=== PATIENT | male | born 1980 | race Caucasian/White ===

== ENCOUNTER 2017-04-20 20:05 | Emergency (ER) | payer BC ==
[2017-04-20] MEDS ORDERED: Alum Hydrox/Mag Hydrox/Simeth 30 ML, Lidocaine 2% 15 ML PO STA ×2 (21:16)
--- NOTE | 2017-04-20 21:45 | EDM.PDOC ---
ED HPI GENERAL MEDICAL PROBLEM - General Chief Complaint: Chest Pain Stated Complaint: PAIN IN SHOULDERS AND CHEST Time Seen by Provider: 04/20/17 20:49 Source of Information: Reports: Patient, Family (), RN Notes Reviewed History Limitations: Reports: No Limitations - History of Present Illness INITIAL COMMENTS - FREE TEXT/NARRATIVE: The patient states that he developed sudden-onset bilateral shoulder achiness and epigastric tightness around 17:00 this evening. It is a pain, not her discomfort. It is made worse with inhalation, especially deep inhalation. The pain does not radiate. The patient denies any associated symptoms, including dyspnea, nausea, diaphoresis, or sense of impending doom. No prior similar symptoms. The patient states that he did not attempt any home remedies or treatments. The patient does not have a PCP. Middle Chest Pain Score (Numeric/FACES): 2 - Related Data Allergies Allergy/AdvReac Type Severity Reaction Status Date / Time No Known Allergies Allergy Verified 04/20/17 20:21 Home Meds: Home Meds . [No Known Home Meds] 04/20/17 [History] Past Medical History Musculoskeletal History: Reports: Fracture - Infectious Disease History Infectious Disease History: Reports: Chicken Pox, Measles - Past Surgical History HEENT Surgical History: Reports: Oral Surgery ([place] tooth (one) extraction) Social & Family History - Tobacco Use Smoking Status *Q: Never Smoker - Caffeine Use Caffeine Use: Reports: Soda - Alcohol Use Alcohol Use History: Yes Alcohol Use Frequency: Rarely - Recreational Drug Use Recreational Drug Use: No - Living Situation & Occupation Living situation: Reports: , with Spouse, with Family (1 child) Occupation: Employed ([employer]) ED ROS GENERAL - Review of Systems Review Of Systems: See Below Constitutional: Reports: No Symptoms HEENT: Reports: Other (Scratchy throat) Respiratory: Reports: No Symptoms Cardiovascular: Reports: No Symptoms Endocrine: Reports: No Symptoms GI/Abdominal: Reports: No Symptoms : Reports: No Symptoms Musculoskeletal: Reports: No Symptoms Skin: Reports: No Symptoms Neurological: Reports: No Symptoms Psychiatric: Reports: No Symptoms Hematologic/Lymphatic: Reports: No Symptoms Immunologic: Reports: No Symptoms ED EXAM, GENERAL - Physical Exam Exam: See Below Exam Limited By: No Limitations General Appearance: Alert, WD/WN, No Apparent Distress Eye Exam: Bilateral Eye: Normal Inspection Ears: Normal External Exam, Hearing Grossly Normal Nose: Normal Inspection, No Blood Throat/Mouth: Normal Inspection, Normal Lips, Normal Voice, No Airway Compromise Head: Atraumatic, Normocephalic Neck: Normal Inspection, Full Range of Motion Respiratory/Chest: No Respiratory Distress, Lungs Clear, Normal Breath Sounds, No Accessory Muscle Use Cardiovascular: Normal Peripheral Pulses, Regular Rate, Rhythm, No Gallop, No JVD, No Murmur, No Rub Peripheral Pulses: 4+: Radial (L), Radial (R) GI/Abdominal: Normal Bowel Sounds, Soft, Non-Tender, No Organomegaly, No Distention, No Abnormal Bruit, No Mass (Male) Exam: Deferred Back Exam: Normal Inspection, Full Range of Motion, NT Extremities: Normal Inspection, Normal Range of Motion, No Pedal Edema, Normal Capillary Refill Neurological: Alert, Oriented, Normal Cognition, No Motor/Sensory Deficits Psychiatric: Normal Affect Skin Exam: Warm, Dry, Intact, Normal Color, No Rash EKG INTERPRETATION EKG Date: 04/20/17 Time: 20:15 Rhythm: NSR Rate (Beats/Min): [address] [place]: Normal P-Wave: Present QRS: Wide (Nonspecific intraventricular conduction delay) ST-T: Normal QT: Normal Comparison: NA - No Prior EKG Course - Vital Signs Last Recorded V/S: Last Vital Signs Temp 36.3 C 04/20/17 20:17 Pulse 75 04/20/17 20:17 Resp 15 04/20/17 20:17 BP 141/100 H 04/20/17 20:17 Pulse Ox 100 04/20/17 20:17 - Orders/Labs/Meds Orders: Active Orders 24 hr Category Date Time Status EKG Documentation Completion [RC] STAT Care 04/20/17 21:05 Active Chest 2V [CR] Stat Exams 04/20/17 21:14 Taken Labs: Laboratory Tests 04/20/17 04/20/17 Range/Units 21:35 21:35 WBC 11.80 H (4.23-9.07) K/mm3 RBC 4.84 (4.63-6.08) M/mm3 Hgb 13.9 (13.7-17.5) gm/L Hct 40.1 (40.1-51.0) % MCV 82.9 (79.0-92.2) fl MCH 28.7 (25.7-32.2) pg MCHC 34.7 (32.2-35.5) g/dl RDW Std Deviation 38.7 (35.1-43.9) fL Plt Count 309 (163-337) K/mm3 MPV 9.0 L (9.4-12.3) fl Neutrophils % (Manual) 57 (40-60) % Band Neutrophils % 0 (0-10) % Lymphocytes % (Manual) 35 (20-40) % Atypical Lymphs % 0 % Monocytes % (Manual) 8 (2-10) % Eosinophils % (Manual) 0 L (0.8-7.0) % Basophils % (Manual) 0 L (0.2-1.2) Platelet Estimate Adequate Plt Morphology Comment Normal RBC Morph Comment Normal Sodium 140 (136-145) mEq/L Potassium 3.5 (3.5-5.1) mEq/L Chloride 105 (98-107) mEq/L Carbon Dioxide 28 (21-32) mEq/L Anion Gap 10.5 (5-15) BUN 18 (7-18) mg/dL Creatinine 1.1 (0.7-1.3) mg/dL Est Cr Clr Drug Dosing TNP Estimated GFR (MDRD) > 60 (>60) mL/min BUN/Creatinine Ratio 16.4 (14-18) Glucose 104 (74-106) mg/dL Calcium 9.2 (8.5-10.1) mg/dL Total Bilirubin 0.4 (0.2-1.0) mg/dL AST 18 (15-37) U/L ALT 36 (16-63) U/L Alkaline Phosphatase 26 L (46-116) U/L Troponin I < 0.017 (0.00-0.056) ng/mL Total Protein 7.5 (6.4-8.2) g/dl Albumin 3.9 (3.4-5.0) g/dl Globulin 3.6 gm/dL Albumin/Globulin Ratio 1.1 (1-2) Lipase 179 (73-393) U/L Meds: Medications Discontinued Medications Generic Name Dose Route Start Last Admin Trade Name Freq PRN Reason Stop Dose Admin Al Hydroxide/Mg Hydroxide 30 ml 04/20/17 23:03 04/20/17 23:09 Mag-Al Plus PO 04/20/17 23:04 30 ml ONETIME ONE Administration Al Hydroxide/Mg Hydroxide 30 0 ml 04/20/17 21:16 04/20/17 21:22 ml/ Lidocaine HCl 15 ml PO 04/20/17 21:17 45 ml ONETIME STA Administration Famotidine 40 mg 04/20/17 23:03 04/20/17 23:09 Pepcid PO 04/20/17 23:04 40 mg ONETIME STA Administration - Re-Assessments/Exams Free Text/Narrative Re-Assessment/Exam: 04/20/17 21:56 Two-view chest radiograph appears to be grossly normal. Cardiac silhouette is within normal limits. No pulmonary vascular congestion. No pleural effusions. No focal infiltrate. No pneumothorax. Formal read per the Radiologist pending. 04/20/17 22:25 The patient reports that the GI cocktail did help with his pain, although it has since returned. 04/20/17 23:04 Test results discussed with the patient and his . Wil's workup is entirely unremarkable. Improvement of the patient's symptoms following a GI cocktail strongly suggests that the patient is suffering from acid reflux. For tonight's purposes, I am ordering 40 mg oral Pepcid and oral Maalox, however, if his symptoms returned more, I am recommending that he start taking over-the- counter Pepcid once or twice a day. If that does not improve his symptoms, I am recommending that he follow-up with Dr. Coughlin to arrange for an EGD. Departure - Departure Time of Disposition: 23:05 Disposition: Home, Self-Care 01 Condition: Good Clinical Impression: GERD (gastroesophageal reflux disease) - Discharge Information Instructions: Food Choices for Gastroesophageal Reflux Disease, Adult Referrals: PCP,Caitlin [Primary Care Provider] - Dorita Coughlin [Physician] - Forms: ED Department Discharge Additional Instructions: You were seen in the emergency room for sudden-onset shoulder and upper abdominal/chest pain. Workup in the ER included blood work, a chest x-ray, and an ECG. Your entire workup was normal. You have not suffered a heart attack. You do not have a collapsed lung. You do not have pancreatitis. Your symptoms briefly improved following a GI cocktail, strongly suggesting that your symptoms are due to acid reflux. You were been treated with Pepcid and Maalox in the ER, however, if your symptoms continue, we recommend that you purchase an [id number] H2 queta , such as Pepcid, Zantac, or Tagamet. Generics are just as good as the brand name. You would take one tablet once or twice a day, as needed. If your symptoms persist despite taking an H2 queta up to twice a day, follow- up with Dr. Coughlin for further evaluation. If any other problems, please do not hesitate to return to the ER. - My Orders Last 24 Hours: My Active Orders 04/20/17 21:05 EKG Documentation Completion [RC] STAT 04/20/17 21:14 Chest 2V [CR] Stat - Assessment/Plan Last 24 Hours: My Active Orders 04/20/17 21:05 EKG Documentation Completion [RC] STAT 04/20/17 21:14 Chest 2V [CR] Stat
[2017-04-20] MEDS ORDERED: Famotidine 20 MG Tab PO STA (23:03)
[2017-04-20] MEDS ORDERED: Aluminum Hydroxide/Magnesium Hydroxide/Simethicone Susp 30 ML Cup PO ONE (23:03)
--- NOTE | 2017-04-21 07:07 | CR ---
Chest: Two views of the chest were obtained. Comparison: Prior chest x-ray of 09/20/16. Heart size and mediastinum are normal. Lungs are clear. Bony structures are unremarkable. Impression: 1. Nothing acute is identified on two-view chest x-ray. Diagnostic code #1
== END 2017-04-20 23:20 | disposition home or self-care (01) ==
LOC: JD.ED 20:05
DX: K21.9 Gastro-esophageal reflux disease without esophagitis (principal)
CPT/HCPCS: 36415; 71020; 80053; 83690; 84484; 85025; 93005; 99285; A9270; 93010; 99283-25

== ENCOUNTER 2017-04-21 17:02 | Emergency (ER) | payer BC ==
--- NOTE | 2017-04-21 17:28 | EDM.PDOC ---
ED HPI GENERAL MEDICAL PROBLEM - General Chief Complaint: Abdominal Pain Stated Complaint: CHEST PAIN Time Seen by Provider: 04/21/17 17:27 Source of Information: Reports: Patient History Limitations: Reports: No Limitations - History of Present Illness INITIAL COMMENTS - FREE TEXT/NARRATIVE: 37-year-old male returns emergency room with continued reflux and heartburn. Patient was seen here last night diagnosed with reflux started on famotidine. Patient's symptoms returned to some degree after he left the emergency room last night so he did not take the famotidine that he was started on thinking it was not helping. Patient was seen at the walk-in clinic and then sent back over here. This point the patient is having continued abdominal discomfort in the upper abdomen is does not extend to the chest anymore however. Chart reviewed from last night patient had a fairly thorough examination and laboratory evaluation his vital signs were stable and looks like he responded to some degree to the GI cocktail. EKG chest x-ray were normal as was his troponin. Bilateral Upper Abdominal Pain Score (Numeric/FACES): 6 - Related Data Allergies Allergy/AdvReac Type Severity Reaction Status Date / Time No Known Allergies Allergy Verified 04/20/17 20:21 Home Meds: Home Meds Hydrocodone/Acetaminophen [[place] 5-325 Tablet] 1 - 2 each PO Q6H PRN #10 tablet 04/21/17 [Rx] Sucralfate [Carafate] 1 gm PO QIDACANDBED #30 tablet 04/21/17 [Rx] Past Medical History Musculoskeletal History: Reports: Fracture Neurological History: Reports: Migraines - Infectious Disease History Infectious Disease History: Reports: Chicken Pox, Measles - Past Surgical History HEENT Surgical History: Reports: Oral Surgery Social & Family History - Family History Family Medical History: Noncontributory - Tobacco Use Smoking Status *Q: Never Smoker Second Hand Smoke Exposure: Yes - Caffeine Use Caffeine Use: Reports: Soda - Recreational Drug Use Recreational Drug Use: No - Living Situation & Occupation Living situation: Reports: , with Spouse, with Family (1 child) Occupation: Employed ([employer]) ED ROS GENERAL - Review of Systems Review Of Systems: See Below Constitutional: Reports: No Symptoms HEENT: Reports: No Symptoms Respiratory: Reports: No Symptoms Cardiovascular: Reports: No Symptoms GI/Abdominal: Reports: Abdominal Pain ED EXAM, GI/ABD - Physical Exam Exam: See Below Exam Limited By: No Limitations General Appearance: Alert, No Apparent Distress Respiratory/Chest: No Respiratory Distress, Lungs Clear, Normal Breath Sounds Cardiovascular: Regular Rate, Rhythm, No Edema, No Murmur GI/Abdominal Exam: Normal Bowel Sounds, Soft, Other (Patient is some tenderness in the midepigastric region and is follows to the left mid upper quadrant. He has no tenderness in the right upper quadrant). No: Distended, Guarding, Rigid , Rebound, Tender Back Exam: Normal Inspection. No: CVA Tenderness (L), CVA Tenderness (R) Course - Vital Signs Last Recorded V/S: Last Vital Signs Temp 36.0 C 04/21/17 17:11 Pulse 102 H 04/21/17 17:11 Resp 17 04/21/17 17:11 BP 154/101 H 04/21/17 17:11 Pulse Ox 96 04/21/17 17:11 - Orders/Labs/Meds Meds: Medications Discontinued Medications Generic Name Dose Route Start Last Admin Trade Name Freq PRN Reason Stop Dose Admin Al Hydroxide/Mg Hydroxide 30 0 ml 04/21/17 17:53 04/21/17 17:58 ml/ Lidocaine HCl 15 ml PO 04/21/17 17:54 45 ml ONETIME ONE Administration Sucralfate 1 gm 04/21/17 18:28 04/21/17 18:34 Carafate PO 04/21/17 18:29 1 gm ONETIME ONE Administration - Re-Assessments/Exams Free Text/Narrative Re-Assessment/Exam: 04/21/17 19:13 Patient received another GI cocktail this didn't help some but not too much this is followed up with some Carafate suspension he had much better improvement with this. Patient still has some discomfort but is a lot better with it. We will discharge the patient had him continue the Pepcid 20 mg twice daily and start him on a week's worth Carafate. We'll also give him a few pain pills. Departure - Departure Time of Disposition: 19:14 Disposition: Home, Self-Care 01 Clinical Impression: Dyspepsia, GERD (gastroesophageal reflux disease) - Discharge Information Prescriptions: Hydrocodone/Acetaminophen [[place] 5-325 Tablet] 1 - 2 each PO Q6H PRN #10 tablet PRN Reason: Abdominal Pain Sucralfate [Carafate] 1 gm PO QIDACANDBED #30 tablet Instructions: Gastroesophageal Reflux Disease, Adult Referrals: PCP,None [Primary Care Provider] - Forms: ED Department Discharge
[2017-04-21] MEDS ORDERED: Alum Hydrox/Mag Hydrox/Simeth 30 ML, Lidocaine 2% 15 ML PO ONE ×2 (17:53)
[2017-04-21] MEDS ORDERED: Sucralfate Suspension 1 GM/10 ML Cup PO ONE (18:28)
== END 2017-04-21 19:36 | disposition home or self-care (01) ==
LOC: JD.ED 17:02
DX: K21.9 Gastro-esophageal reflux disease without esophagitis (principal); Z77.22 Contact with and (suspected) exposure to environmental tobacco smoke (acute) (chronic)
CPT/HCPCS: 99284; A9270; 99283